=== PATIENT | female | born 1970 | race Caucasian/White ===

== ENCOUNTER 2016-09-25 22:14 | Emergency (ER) | payer BC, OTHER ==
--- NOTE | 2016-09-25 23:56 | DIAGNOSTIC IMAGING REPORT ---
PROCEDURE: CT ABD/PELVIS WITH CONTRAST INDICATION: Right abdominal and flank pain. Vomiting. TECHNIQUE: 125 ml of Isovue 300 were injected intravenously and axial images were obtained of the entire abdomen and pelvis with sagittal and coronal reformations. COMPARISON: None. FINDINGS: ABDOMEN: There is mild generalized mucosal thickening of the second portion of the duodenum with moderate ingested fluid in the stomach. Gallbladder is partially contracted with phrygian cap. Liver, spleen, pancreas, kidneys, and aorta are normal. Bowel pattern is normal, including appendix. PELVIS: T-shaped IUD within the endometrial canal. Uterus and adnexal structures are twice normal. No evidence of free fluid. IMPRESSION: 1. Findings suggest mild mucosal thickening of the second portion of the duodenum. Consider duodenitis or peptic disease. 2. Partially contracted gallbladder with phrygian cap. (normal variant) with moderate ingested material/fluid in the stomach. 3. T-shaped IUD in satisfactory position. 4. Otherwise negative CT abdomen and pelvis. 5. Findings discussed with LOTTIE Tillman. All CT scans at this facility use dose modulation, iterative reconstruction, and/or weight-based dosing when appropriate to reduce radiation dose to as low as reasonably achievable.
--- NOTE | 2016-09-26 | ED NURSING NOTES ---
Clinical Report - Nurses [facility] [address] [place] [address] 09/25/2016 22:14 Patient: LOC ANDERSEN TRIAGE Acuity: LEVEL 3. Chief Complaint: ABDOMINAL PAIN and VOMITING. Alert. No acute distress. --22:30 Shona Richey R.N. 22:24 09/25/16. BP: 129/55. HR: 99. RR: 24. O2 saturation: 100%. Temp: 97.9 F (oral). Pain level now: 02/06. --22:30 Shona Richey R.N. Weight: 81.6 kg stated. Height/Length: 63 inches Per Patient. BMI: 31.9. --22:29 Shona Richey R.N. Medications Lisinopril Oral. --22:34 Shona Richey R.N. Hydrochlorothiazide Oral. --22:35 Shona Richey R.N. Medication/allergy information source: the patient. --22:30 Shona Richey R.N. Allergies Penicillin. --22:34 Shona Richey R.N. History Arrived by private vehicle. Historian: patient. Accompanied by spouse. Primary physician (Laya). This started today. Describes the quality as "pain", sharp and cramping. Relates location as in the right flank area, right upper quadrant and right abdomen. She has had vomiting. Treatment COMBUSTION ANALYST: None. PAST MEDICAL HX: Last normal menstrual period was 4 weeks ago. Sexual history - sexually active. Uses an intrauterine device. SOCIAL HX: Never smoker. No alcohol use or drug use. FALL RISK ASSESSMENT: Fall risk assessment completed. No fall risk identified. NUTRITIONAL RISK ASSESSMENT: The nutritional risk assessment revealed no deficiencies. FUNCTIONAL ASSESSMENT: Functional assessment: no impairments noted. LEARNING NEEDS ASSESSMENT: The learning needs assessment revealed no barriers. SKIN INTEGRITY ASSESSMENT: Skin integrity risk assessment completed. No skin integrity risk identified. --22:30 Shona Richey R.N. PROBLEMS: Hypertension. --22:35 Shona Richey R.N. ADDITIONAL SURGERIES: Elbow surgery. Shoulder Surgery. --22:35 Shona Richey R.N. Assessment GENERAL / NEURO / PSYCH: Alert. Oriented X 4. Appears in no acute distress. Appears in pain and anxious. P[place] Coma Scale: 15- eyes open spontaneously (4); best verbal response- oriented x 4 (5); best motor response- obeys commands (6). RESPIRATORY: Respirations not labored. CVS: Capillary refill less than 2 seconds. GI / : Abdomen soft. Abdominal tenderness. SKIN: Mucous membranes are pink. Skin is warm and dry. --22:30 Shona Richey R.N. Interventions ID band on patient. To treatment room. --22:30 Shona Richey R.N. PHYSICAL ASSESSMENT Ambulatory to room. GENERAL / NEURO / PSYCH: Alert. Oriented X 4. Appears in no acute distress. HEENT: Mucous membranes are pink. RESPIRATORY: Respirations not labored. CVS: Capillary refill less than 2 seconds. GI / : Abdomen soft. SKIN: Skin is warm and dry. --22:28 Shona Richey R.N. NURSING PROGRESS NOTES 22:30 09/25/16. Patient gowned. Two patient identifiers checked. Call light placed in reach. Side rails up x 1. Bed placed in lowest position. Brakes of bed on. Patient ready for evaluation- chart flagged and ED physician and SPANISH INTERPRETER/TRANSLATOR notified. --22:30 Shona Richey R.N. 22:43 09/25/2016 Site #1 started via IV in the left antecubital space with an 20g angiocath, with aseptic technique and good blood return; one attempt. Blood drawn: rainbow set. Labeled in the presence of the patient and sent to the lab. Saline lock flushed with 10 mL saline. --22:44 Shona Richey R.N. 22:44 09/25/16. Checked patient name and birthdate: patient confirmed. Clean catch urine collected with return of yellow-colored clear urine; sample sent to lab for urinalysis and HCG. Specimen labeled in the presence of the patient. --22:44 Shona Richey R.N. 22:45 09/25/2016 Started bag #1 1000 mL IV Fluids IV NS (Saline); bolus of 1000 mL over 1 hour(s) then at 1000 mL/hr via site #1. Allergies verified and confirmed 5 rights. IV patency established. IV site checked: no pain, redness, or swelling. IV flushed thoroughly pre- and post-medication administration. Completed per protocol. --22:45 Júnior Osorio R.N. 22:45 09/25/2016 Toradol IVP 30 mg given over 2 minute(s) via site #1. Allergies verified and confirmed 5 rights. IV patency established. IV site checked: no pain, redness, or swelling. IV flushed thoroughly pre- and post-medication administration. IVP given by RN. --22:45 Júnior Osorio R.N. 22:45 09/25/2016 Zofran (Ondansetron HCl) IVP 4 mg given over 2 minute(s) via site #1. Allergies verified and confirmed 5 rights. IV patency established. IV site checked: no pain, redness, or swelling. IV flushed thoroughly pre- and post-medication administration. IVP given by RN. --:45 Júnior Osorio R.N. 00:11 09/26/2016 IV Fluids IV NS Discontinued: bag #1 completed upon discharge. Total amount infused: 1000 mL. IV patency established. IV site checked: no pain, redness, or swelling. IV flushed thoroughly. --00:11 Júnior Osorio R.N. 00:12 09/26/2016 Toradol IVP Response: no adverse reaction pain is improving. Symptoms have improved the patient feels better. --00:12 Júnior Osorio R.N. 00:12 09/26/2016 Zofran IVP Response: no adverse reaction symptoms have improved the patient feels better. --00:12 Júnior Osorio R.N. DISPOSITION / DISCHARGE 00:09/26/2016 Site #1 removed upon discharge. Catheter intact. Bandaid applied (Bleeding controlled.). --00: Júnior Osorio R.N. Departure time: 00:09. Condition at departure: stable. The goals identified in the patient's plan of care were met. No learning barriers present. Discharge instructions provided and reviewed with the patient. Reviewed medication(s) side effects, precautions, dosing and course information. Prescription(s) given to the patient (Loc verbalizes importance of not driving and/or operating heavy machinery while taking Tramadol. She verbalizes safe, proper use of all prescribed pain meds for optimal pain management at home.). Patient verbalized understanding. Written instructions provided in Faroese. ( Loc verbalizes understanding of all d/c instructions including need for f/u with PCP. She has no questions and voices no concerns at this time.). The patient was discharged by the nurse practitioner. She was discharged home and accompanied by spouse. She left the Emergency Department ambulatory and via private vehicle. Spouse driving. ADRIAN COMA SCORE: Pomeroy Coma Scale: 15- eyes open spontaneously (4); best verbal response- oriented x 4 (5); best motor response- obeys commands (6). --00:11 Júnior Osorio R.N. 00:09 09/26/16. BP: 103/56 (regular adult cuff) taken on the left arm, via an automated monitor, while lying. HR: 90 (normal rate). RR: 14 (regular, unlabored and normal). O2 saturation: 98% on room air. Temp: 98.4 F (oral). Pain level now: 09/06. --00:11 Júnior Osorio R.N. Locked/Released at 09/26/2016 0:12 by Júnior Osorio R.N.
--- NOTE | 2016-09-26 | ED ORDER SUMMARY ---
..... Patient: LOC ANDERSEN OrderSheet [facility] VisitID: [id number] [address] [place] [address] 46y, F Registration Date/Time: 09/25/2016 ORDER SHEET Weight: 81.6 kg (stated) Allergies: Penicillin GENERAL ORDERS: UA-Culture if indicated Urgent (22:31 09/25/2016 MWinterer R.N. per protocol) (Ack 22:38 CHagerty ER Labor Relations Analyst) (22:43 MWinterer R.N.) Urine Urgent (22:31 09/25/2016 MWinterer R.N. per protocol) (Ack 22:38 CHagerty ER Labor Relations Analyst) (22:43 MWinterer R.N.) CBC w Diff Urgent (22:37 09/25/2016 HBivens A.R.N.P.) (Ack 22:38 CHagerty ER Labor Relations Analyst) (22:43 MWinterer R.N.) CMP Urgent (22:37 09/25/2016 HBivens A.R.N.P.) (Ack 22:38 CHagerty ER Labor Relations Analyst) (22:43 MWinterer R.N.) Amylase Urgent (22:37 09/25/2016 HBivens A.R.N.P.) (Ack 22:38 CHagerty ER Labor Relations Analyst) (22:43 MWinterer R.N.) Lipase Urgent (22:37 09/25/2016 HBivens A.R.N.P.) (Ack 22:38 CHagerty ER Labor Relations Analyst) (22:43 MWinterer R.N.) CT Abd/Pel w Cont (No) (pending) Urgent (22:57 09/25/2016 HBivens A.R.N.P.) (Ack 22:58 CHagerty ER Labor Relations Analyst) (23:42 RFay) MEDICATION ORDERS: IV FLUIDS: IV NS : initial bolus 1000 mL (1000 mL/hr), then none - (NOW) (22:36 09/25/2016 HBivens A.R.N.P.) (Ack 22:40 JDeElena R.N.) (22:45 JDeElena R.N.) Toradol IV 30 mg (NOW) (22:37 09/25/2016 HBivens A.R.N.P.) (Ack 22:40 Renan R.N.) (22:45 JDeElena R.N.) Zofran IV 4 mg (NOW) (22:37 09/25/2016 HBivens A.R.N.P.) (Ack 22:40 Renan R.N.) (22:45 Renan R.N.) IV Saline Lock (22:37 09/25/2016 HBivens A.R.N.P.) (Ack 22:40 LindaElenjesika R.N.) (22:44 MWinterer R.N.) ORDER SHEET NOTES: [Electronically signed by Júnior Osorio R.N. (00:12 09/26/2016)] [Electronically signed by Laurie De La CruzRAwaisNAwaisPAwais (12:07 09/26/2016)] [Electronically locked/signed by Júnior Osorio R.N. (00:12 09/26/2016)]
--- NOTE | 2016-09-26 | ED ORDER SUMMARY ---
..... Patient: LOC ANDERSEN OrderSheet [facility] VisitID: [id number] [address] [place] [address] 46y, F Registration Date/Time: 09/25/2016 ORDER SHEET Weight: 81.6 kg (stated) Allergies: Penicillin GENERAL ORDERS: UA-Culture if indicated Urgent (22:31 09/25/2016 MWinterer R.N. per protocol) (Ack 22:38 CHagerty ER Office Messenger) (22:43 MWinterer R.N.) Urine Urgent (22:31 09/25/2016 MWinterer R.N. per protocol) (Ack 22:38 CHagerty ER Office Messenger) (22:43 MWinterer R.N.) CBC w Diff Urgent (22:37 09/25/2016 HBivens A.R.N.P.) (Ack 22:38 CHagerty ER Office Messenger) (22:43 MWinterer R.N.) CMP Urgent (22:37 09/25/2016 HBivens A.R.N.P.) (Ack 22:38 CHagerty ER Office Messenger) (22:43 MWinterer R.N.) Amylase Urgent (22:37 09/25/2016 HBivens A.R.N.P.) (Ack 22:38 CHagerty ER Office Messenger) (22:43 MWinterer R.N.) Lipase Urgent (22:37 09/25/2016 HBivens A.R.N.P.) (Ack 22:38 CHagerty ER Office Messenger) (22:43 MWinterer R.N.) CT Abd/Pel w Cont (No) (pending) Urgent (22:57 09/25/2016 HBivens A.R.N.P.) (Ack 22:58 CHagerty ER Office Messenger) (23:42 RFay) MEDICATION ORDERS: IV FLUIDS: IV NS : initial bolus 1000 mL (1000 mL/hr), then none - (NOW) (22:36 09/25/2016 HBivens A.R.N.P.) (Ack 22:40 JDeElena R.N.) (22:45 JDeElena R.N.) Toradol IV 30 mg (NOW) (22:37 09/25/2016 HBivens A.R.N.P.) (Ack 22:40 Renan R.N.) (22:45 JDeElena R.N.) Zofran IV 4 mg (NOW) (22:37 09/25/2016 HBivens A.R.N.P.) (Ack 22:40 Renan R.N.) (22:45 Renan R.N.) IV Saline Lock (22:37 09/25/2016 HBivens A.R.N.P.) (Ack 22:40 LindaElenjesika R.N.) (22:44 MWinterer R.N.) ORDER SHEET NOTES: [Electronically signed by Júnior Osorio R.N. (00:12 09/26/2016)] [Electronically signed by Laurie De La CruzRAwaisNAwaisPAwais (12:07 09/26/2016)] [Electronically locked/signed by Júnior Osorio R.N. (00:12 09/26/2016)]
--- NOTE | 2016-09-26 | ED CLINICAL REPORT ---
Clinical Report - Physicians/Mid Levels [facility] [address] [place] [address] 09/25/2016 22:14 Patient: LOC ANDERSEN Time Seen: 22:24; upon arrival, initial patient contact, initial documentation, patient care assumed. Arrived- By private vehicle. Historian- patient. HISTORY OF PRESENT ILLNESS Chief Complaint: ABDOMINAL PAIN. At its maximum, severity described as severe. When seen in the E.D., severity described as severe. Modifying factors. Not worsened by anything. Not relieved by anything. This started today and is still present. It is described as "pain", sharp and cramping and it is described as located in the right flank and the right upper quadrant and right abdomen. The patient has had nausea. No loss of appetite or diarrhea. She has had vomiting. The vomiting has occurred several times and has been bilious. No feculent emesis, blood-tinged emesis, coffee-grounds emesis, frankly bloody emesis or unusually dark emesis. Similar symptoms previously: None. Recent medical care: Not recently seen/assessed. REVIEW OF SYSTEMS No constipation, black stools, hematemesis, difficulty with urination or pain with urination. No urinary frequency, bloody stools, fever, chest pain or difficulty breathing. All systems otherwise negative, except as recorded above. PAST HISTORY See nurses notes. PROBLEMS: Hypertension. --22:35 Shona Richey R.N. ADDITIONAL SURGERIES: Elbow surgery. Shoulder Surgery. --22:35 Shona Richey R.N. SOCIAL HISTORY Never smoker. No alcohol use or drug use. No recent travel. Is a local resident. FAMILY HISTORY Negative. ADDITIONAL NOTES The nursing notes have been reviewed with agreement regarding the chief complaint, HPI, ROS, PMH and patient medications and allergies. PHYSICAL EXAM Vital Signs: 09/25/2016 22:24 BP: 129/55. HR: 99. RR: 24. O2 saturation: 100%. Temp: 97.9 F. Pain level now: 9/10. Have been reviewed as normal and appear to be correct. Appearance: Alert. Oriented X3. No acute distress. Eyes: Pupils equal, round and reactive to light. Eyes normal inspection. Neck: Normal inspection. Neck supple. CVS: Normal heart rate and rhythm. Heart sounds normal. Pulses normal. Respiratory: No respiratory distress. Breath sounds normal. Chest nontender. Abdomen: Soft and nontender. Bowel sounds normal. No organomegaly. No mass. Back: Normal inspection. Skin: Skin warm and dry. Normal skin color. No rash. Normal skin turgor. Extremities: Extremities exhibit normal ROM. No lower extremity edema. Neuro: Oriented X 3. No motor deficit. No sensory deficit. LABS, X-RAYS, AND EKG Abdominal CT: . IMPRESSION: 1. Findings suggest mild mucosal thickening of the second portion of the duodenum. Consider duodenitis or peptic disease. 2. Partially contracted gallbladder with phrygian cap. (normal variant) with moderate ingested material/fluid in the stomach. 3. T-shaped IUD in satisfactory position. 4. Otherwise negative CT abdomen and pelvis. 5. Findings discussed with LOTTIE Tillman. All CT scans at this facility use dose modulation, iterative reconstruction, and/or weight-based dosing when appropriate to reduce radiation dose to as low as reasonably achievable. Electronically Final signed by:Wander Obrien MD 09/25/2016 11:52:45 PM. The study was interpreted by the radiologist and discussed with the radiologist. Interpretation time: 2355. Laboratory Tests: UA-Culture if indicated: (SHANNON: 09/25/2016 22:30) ( MsgRcvd 09/25/2016 22:50) Final results Test Result Flag Units (Reference) URINE COLOR YELLOW URINE APPEARANCE CLEAR URINE GLUCOSE NEGATIVE (NEGATIVE) URINE BILIRUBIN NEGATIVE (NEGATIVE) URINE KETONE TRACE (NEGATIVE) URINE SPECIFIC GRAVITY 1.015 (1.010-1.030) URINE PH 6.0 (5.0-8.0) URINE PROTEIN NEGATIVE (NEGATIVE) URINE UROBILINOGEN 0.2 EU/dL (0.2-1.0) URINE NITRITE NEGATIVE (NEGATIVE) URINE BLOOD TRACE-INTACT (NEGATIVE) URINE LEUK ESTERASE NEGATIVE (NEGATIVE) URINE RBC 0-1 rbc/hpf (0-1) URINE WBC 0-1 wbc/hpf (0-1) URINE EPITHELIAL CELLS 0-1 EPI/hpf (0-5) URINE BACTERIA TRACE (<1+) (NONE SEEN) URINE COMMENT CULT NOT INDICATED URINE CULTURES ARE SET-UP BASED ON THE FOLLOWING CRITERIA:POSITIVE NITRITEPOSITIVE LEUKOCYTE ESTERASEGREATER THAN 10 WHITE BLOOD CELLSMODERATE (2+) OR GREATER BACTERIA Urine: (SHANNON: 09/25/2016 22:30) ( [facility] 09/25/2016 22:42) Final results Test Result Flag Units (Reference) URINE NEGATIVE CBC w Diff: (SHANNON: 09/25/2016 22:35) ( [facility] 09/25/2016 22:53) Final results Test Result Flag Units (Reference) WHITE BLOOD COUNT 16.2 H K/uL (4.5-11.5) RED BLOOD COUNT 4.33 M/uL (4.00-5.20) HEMOGLOBIN 13.3 gm/dL (12.0-16.0) HEMATOCRIT 39.7 % (36.0-46.0) MEAN CELL VOLUME 92 fL (80-100) MEAN CORPUSCULAR HGB 31 pg (26-34) MEAN CORPUSCULAR HGB CONC 34 g/dL (31-37) RED CELL DISTRIBUTION WIDTH 12.1 % (11.6-14.8) PLATELET COUNT 263 K/uL (150-400) LYMPH % 25.5 % (25-40) MONO % 7.2 % (3-14) GRANULOCYTE % 67.3 (53-90) CMP: (SHANNON: 09/25/2016 22:35) ( [facility] 09/25/2016 23:09) Final results Test Result Flag Units (Reference) GLUCOSE 150 H mg/dL (70-110) BUN 26 H mg/dL (7-18) CREATININE 0.9 mg/dL (0.6-1.3) Estimated GFR >60 mL/min Estimated GFR- >60 mL/min Note: Persistent reduction over 3 months in eGFR<60 mL/min/1.73 m2 defines CKD. Patients with eGFR values>=60 mL/min/1.73 m2 may also have CKD if evidence ofpersistent proteinuria. Additional information may be foundat www.kidney.org. SODIUM 136 mmol/L (136-145) POTASSIUM 3.5 mmol/L (3.5-5.1) CHLORIDE 99 mmol/L (98-107) CARBON DIOXIDE 25 mmol/L (21-32) CALCIUM 9.6 mg/dL (8.5-10.1) TOTAL PROTEIN 8.1 g/dL (6.4-8.2) ALBUMIN 3.7 g/dL (3.3-5.0) BILIRUBIN, TOTAL 0.5 mg/dL (0.0-1.0) ALKALINE PHOSPHATASE 69 U/L (46-116) AST (SGOT) 40 H U/L (15-37) ALT (SGPT) 37 U/L (12-78) LIPASE 120 U/L (73-393) AMYLASE 27 U/L (25-115) . PROGRESS AND PROCEDURES Course of Care: 2305. updated with plan of care to do ct, based on elevated wbc. 09/26/2016 00:09 BP: 103/56. HR: 90. RR: 14. O2 saturation: 98%. Temp: 98.4 F. Pain level now: 4/10. Vital Signs: have been reviewed as normal and appear to be correct. Patient and spouse counseled in person regarding the patient's stable condition, test results and diagnosis. 00:00. Differential Diagnosis: I considered gastritis, gastroenteritis, peptic ulcer disease, gastroesophageal reflux disease, acute appendicitis, diverticulitis, colon cancer, ulcerative colitis, small bowel obstruction, biliary colic, cholecystitis, cholelithiasis, hepatitis, pancreatitis, common bile duct obstruction, cholangitis, urinary tract infection, ureterolithiasis, and viral syndrome as a possible cause of abdominal pain in this patient. This is a partial list of diagnoses considered. Above considerations are based on history, physical exam, reassessment, laboratory data and other information. Differential diagnosis was discussed with patient and patient's spouse. Disposition: Discharged home in good and improved condition (00:00). Condition: good and stable. CLINICAL IMPRESSION Acute right upper quadrant abdominal pain of undetermined cause. INSTRUCTIONS Warnings: GENERAL WARNINGS: Return or contact your physician immediately if your condition worsens or changes unexpectedly, if not improving as expected, or if other problems arise. SPECIFICALLY, return if you develop pain in the abdomen or pelvis, fever, the inability to keep fluids down, blood in vomitus, blood in diarrhea, fainting or lightheadedness. Prescription Medications: Zofran 4 mg: Take 1 orally every six hours as needed for nausea/vomiting. Dispense ten (10). No refills. Substitution is permissible. Pepcid 20 mg tablets: Take 1 orally every 12 hours. Dispense thirty (30). No refills. Substitution is permissible. Ultram 50 mg tablets: take 1-2 orally every 6 hours as needed for pain. Dispense twenty (20). No refills. Substitution is permissible. Follow-up: Follow up with your doctor in about two days even if well. Call for an appointment. Summary of care provided to patient. Understanding of the discharge instructions verbalized by patient. (Electronically signed by Laurie De La Cruz A.R.N.P. 09/26/2016 12:07)
--- NOTE | 2016-09-26 | ED NURSING NOTES ---
Clinical Report - Nurses [facility] [address] [place] [address] 09/25/2016 22:14 Patient: LOC ANDERSEN TRIAGE Acuity: LEVEL 3. Chief Complaint: ABDOMINAL PAIN and VOMITING. Alert. No acute distress. --22:30 Shona Richey R.N. 22:24 09/25/16. BP: 129/55. HR: 99. RR: 24. O2 saturation: 100%. Temp: 97.9 F (oral). Pain level now: 02/06. --22:30 Shona Richey R.N. Weight: 81.6 kg stated. Height/Length: 63 inches Per Patient. BMI: 31.9. --22:29 Shona Richey R.N. Medications Lisinopril Oral. --22:34 Shona Richey R.N. Hydrochlorothiazide Oral. --22:35 Shona Richey R.N. Medication/allergy information source: the patient. --22:30 Shona Richey R.N. Allergies Penicillin. --22:34 Shona Richey R.N. History Arrived by private vehicle. Historian: patient. Accompanied by spouse. Primary physician (Laya). This started today. Describes the quality as "pain", sharp and cramping. Relates location as in the right flank area, right upper quadrant and right abdomen. She has had vomiting. 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 PAST MEDICAL HX: Last normal menstrual period was 4 weeks ago. Sexual history - sexually active. Uses an intrauterine device. SOCIAL HX: Never smoker. No alcohol use or drug use. FALL RISK ASSESSMENT: Fall risk assessment completed. No fall risk identified. NUTRITIONAL RISK ASSESSMENT: The nutritional risk assessment revealed no deficiencies. FUNCTIONAL ASSESSMENT: Functional assessment: no impairments noted. LEARNING NEEDS ASSESSMENT: The learning needs assessment revealed no barriers. SKIN INTEGRITY ASSESSMENT: Skin integrity risk assessment completed. No skin integrity risk identified. --22:30 Shona Richey R.N. PROBLEMS: Hypertension. --22:35 Shona Richey R.N. ADDITIONAL SURGERIES: Elbow surgery. Shoulder Surgery. --22:35 Shona Richey R.N. Assessment GENERAL / NEURO / PSYCH: Alert. Oriented X 4. Appears in no acute distress. Appears in pain and anxious. [place] Coma Scale: 15- eyes open spontaneously (4); best verbal response- oriented x 4 (5); best motor response- obeys commands (6). RESPIRATORY: Respirations not labored. CVS: Capillary refill less than 2 seconds. GI / : Abdomen soft. Abdominal tenderness. SKIN: Mucous membranes are pink. Skin is warm and dry. --22:30 Shona Richey R.N. Interventions ID band on patient. To treatment room. --22:30 Shona Richey R.N. PHYSICAL ASSESSMENT Ambulatory to room. GENERAL / NEURO / PSYCH: Alert. Oriented X 4. Appears in no acute distress. HEENT: Mucous membranes are pink. RESPIRATORY: Respirations not labored. CVS: Capillary refill less than 2 seconds. GI / : Abdomen soft. SKIN: Skin is warm and dry. --22:28 Shona Richey R.N. NURSING PROGRESS NOTES 22:30 09/25/16. Patient gowned. Two patient identifiers checked. Call light placed in reach. Side rails up x 1. Bed placed in lowest position. Brakes of bed on. Patient ready for evaluation- chart flagged and ED physician and JAILER CHIEF notified. --22:30 Shona Richey R.N. 22:43 09/25/2016 Site #1 started via IV in the left antecubital space with an 20g angiocath, with aseptic technique and good blood return; one attempt. Blood drawn: rainbow set. Labeled in the presence of the patient and sent to the lab. Saline lock flushed with 10 mL saline. --22:44 Shona Richey R.N. 22:44 09/25/16. Checked patient name and birthdate: patient confirmed. Clean catch urine collected with return of yellow-colored clear urine; sample sent to lab for urinalysis and HCG. Specimen labeled in the presence of the patient. --22:44 Shona Richey R.N. 22:45 09/25/2016 Started bag #1 1000 mL IV Fluids IV NS (Saline); bolus of 1000 mL over 1 hour(s) then at 1000 mL/hr via site #1. Allergies verified and confirmed 5 rights. IV patency established. IV site checked: no pain, redness, or swelling. IV flushed thoroughly pre- and post-medication administration. Completed per protocol. --22:45 Júnior Osorio R.N. 22:45 09/25/2016 Toradol IVP 30 mg given over 2 minute(s) via site #1. Allergies verified and confirmed 5 rights. IV patency established. IV site checked: no pain, redness, or swelling. IV flushed thoroughly pre- and post-medication administration. IVP given by RN. --22:45 Júnior Osorio R.N. 22:45 09/25/2016 Zofran (Ondansetron HCl) IVP 4 mg given over 2 minute(s) via site #1. Allergies verified and confirmed 5 rights. IV patency established. IV site checked: no pain, redness, or swelling. IV flushed thoroughly pre- and post-medication administration. IVP given by RN. --:45 Júnior Osorio R.N. 00:11 09/26/2016 IV Fluids IV NS Discontinued: bag #1 completed upon discharge. Total amount infused: 1000 mL. IV patency established. IV site checked: no pain, redness, or swelling. IV flushed thoroughly. --00:11 Júnior Osorio R.N. 00:12 09/26/2016 Toradol IVP Response: no adverse reaction pain is improving. Symptoms have improved the patient feels better. --00:12 Júnior Osorio R.N. 00:12 09/26/2016 Zofran IVP Response: no adverse reaction symptoms have improved the patient feels better. --00:12 Júnior sOorio R.N. DISPOSITION / DISCHARGE 00:09/26/2016 Site #1 removed upon discharge. Catheter intact. Bandaid applied (Bleeding controlled.). --00: Júnior Osorio R.N. Departure time: 00:09. Condition at departure: stable. The goals identified in the patient's plan of care were met. No learning barriers present. Discharge instructions provided and reviewed with the patient. Reviewed medication(s) side effects, precautions, dosing and course information. Prescription(s) given to the patient (Loc verbalizes importance of not driving and/or operating heavy machinery while taking Tramadol. She verbalizes safe, proper use of all prescribed pain meds for optimal pain management at home.). Patient verbalized understanding. Written instructions provided in Arabic. ( Loc verbalizes understanding of all d/c instructions including need for f/u with PCP. She has no questions and voices no concerns at this time.). The patient was discharged by the nurse practitioner. She was discharged home and accompanied by spouse. She left the Emergency Department ambulatory and via private vehicle. Spouse driving. ADRIAN COMA SCORE: [place] Coma Scale: 15- eyes open spontaneously (4); best verbal response- oriented x 4 (5); best motor response- obeys commands (6). --00:11 Júnior Osorio R.N. 00:09 09/26/16. BP: 103/56 (regular adult cuff) taken on the left arm, via an automated monitor, while lying. HR: 90 (normal rate). RR: 14 (regular, unlabored and normal). O2 saturation: 98% on room air. Temp: 98.4 F (oral). Pain level now: 09/06. --00:11 Júnior Osorio R.N. Locked/Released at 09/26/2016 0:12 by Júnior Osorio R.N.
--- NOTE | 2016-09-26 12:07 | ED DISCHARGE INSTRUCTIONS ---
Patient: LOC ANDERSEN General Instructions [facility] VisitID: [id number] [address] [place] [address] 46y, F Registration Date/Time: 09/25/2016 Acute right upper quadrant abdominal pain of undetermined cause. INSTRUCTIONS Warnings: GENERAL WARNINGS: Return or contact your physician immediately if your condition worsens or changes unexpectedly, if not improving as expected, or if other problems arise. SPECIFICALLY, return if you develop pain in the abdomen or pelvis, fever, the inability to keep fluids down, blood in vomitus, blood in diarrhea, fainting or lightheadedness. Prescription Medications: Zofran 4 mg: Take 1 orally every six hours as needed for nausea/vomiting. Dispense ten (10). No refills. Substitution is permissible. Pepcid 20 mg tablets: Take 1 orally every 12 hours. Dispense thirty (30). No refills. Substitution is permissible. Ultram 50 mg tablets: take 1-2 orally every 6 hours as needed for pain. Dispense twenty (20). No refills. Substitution is permissible. Follow-up: Follow up with your doctor in about two days even if well. Call for an appointment. Summary of care provided to patient. Understanding of the discharge instructions verbalized by patient. ADDITIONAL INFORMATION Abdominal Pain, Unknown Cause (Female) The exact cause of your abdominal (stomach) pain is not certain. This does not mean that this is something to worry about, or the right tests were not done. Everyone likes to know the exact cause of the problem, but sometimes with abdominal pain, there is no clear-cut cause, and this could be a good thing. The good news is that your symptoms can be treated, and you will feel better. Your condition does not seem serious now; however, sometimes the signs of a serious problem may take more time to appear. For this reason,it is important for you to watch for any new symptoms, problems,or worsening of your condition. Over the next few days, the abdominal pain may come and go, or be continuous. Other common symptoms can include nausea and vomiting. Sometimes it can be difficult to tell if you feel nauseous, you may just feel bad and not associate that feeling with nausea. Constipation, diarrhea, and a fever may go along with the pain. The pain may continue even if treated correctly over the following days. Depending on how things go, sometimes the cause can become clear and may require further or different treatment. Additional evaluations, medications, or tests may be needed. Home care Your health care provider may prescribe medications for pain, symptoms, or an infection. Follow the health care provider's instructions for taking these medications. General care Rest until your next exam. No strenuous activities. Try to find positions that ease discomfort. A small pillow placed on the abdomen may help relieve pain. Something warm on your abdomen (such as a heating pad) may help, but be careful not to burn yourself. Diet Do not force yourself to eat, especially if having cramps, vomiting, or diarrhea. Water is important so you do not get dehydrated. Soup may also be good. Sports drinks may also help, especially if they are not too acidic. Make sure you don't drink sugary drinks as this can make things worse. Take liquids in small amounts. Do not guzzle them. Caffeine sometimes makes the pain and cramping worse. Avoid dairy products if you have vomiting or diarrhea. Don't eat large amounts at a time. Wait a few minutes between bites. Eat a diet low in fiber (called a low-residue diet). Foods allowed include refined breads, white rice, fruit and vegetable juices without pulp, tender meats. These foods will pass more easily through the intestine. Avoid whole-grain foods, whole fruits and vegetables, meats, seeds and nuts, fried or fatty foods, dairy, alcohol and spicy foods until your symptoms go away. Follow-up care Follow up with your health care provider as instructed, or if your pain does not begin to improve in the next 24 hours. When to seek medical care Seek prompt medical care if any of the following occur: Pain gets worse or moves to the right lower abdomen New or worsening vomiting or diarrhea Swelling of the abdomen Unable to pass stool for more than three days Fever of 100.4F (38C) or higher, or as directed by your healthcare provider. Blood in vomit or bowel movements (dark red or black color) Jaundice (yellow color of eyes and skin) Weakness, dizziness Chest, arm, back, neck or jaw pain Unexpected vaginal bleeding or missed period Call 911 Call emergency services if any of the following occur: Trouble breathing Confusion Fainting or loss of consciousness Rapid heart rate Seizure Ondansetron Oral disintegrating tablet What is this medicine? ONDANSETRON (on TAHIRA se tabatha) is used to treat nausea and vomiting caused by chemotherapy. It is also used to prevent or treat nausea and vomiting after surgery. How should I use this medicine? These tablets are made to dissolve in the mouth. Do not try to push the tablet through the foil backing. With dry hands, peel away the foil backing and gently remove the tablet. Place the tablet in the mouth and allow it to dissolve, then swallow. While you may take these tablets with water, it is not necessary to do so. Talk to your monitor worker regarding the use of this medicine in children. Special care may be needed. What side effects may I notice from receiving this medicine? Side effects that you should report to your doctor or health coronary care unit nurse as soon as possible: allergic reactions like skin rash, itching or hives, swelling of the face, lips, or tongue breathing problems dizziness fast or irregular heartbeat feeling faint or lightheaded, falls fever and chills swelling of the hands and feet tightness in the chest Side effects that usually do not require medical attention (report to your doctor or health coronary care unit nurse if they continue or are bothersome): constipation or diarrhea headache What may interact with this medicine? Do not take this medicine with any of the following medications: -apomorphine -cisapride -dofetilide -dronedarone -pimozide -thioridazine -ziprasidone This medicine may also interact with the following medications: -carbamazepine -phenytoin -rifampicin -tramadol -other medicines that prolong the QT interval (cause an abnormal heart rhythm) What if I miss a dose? If you miss a dose, take it as soon as you can. If it is almost time for your next dose, take only that dose. Do not take double or extra doses. Where should I keep my medicine? Keep out of the reach of children. Store between 2 and 30 degrees C (36 and 86 degrees F). Throw away any unused medicine after the expiration date. What should I tell my health care provider before I take this medicine? They need to know if you have any of these conditions: heart disease history of irregular heartbeat liver disease low levels of magnesium or potassium in the blood an unusual or allergic reaction to ondansetron, granisetron, other medicines, foods, dyes, or preservatives or trying to get breast-feeding What should I watch for while using this medicine? Check with your doctor or health coronary care unit nurse as soon as you can if you have any sign of an allergic reaction. Famotidine Oral tablet What is this medicine? FAMOTIDINE (fa IGNACIA avilaen) is a type of antihistamine that blocks the release of stomach acid. It is used to treat stomach or intestinal ulcers. It can also relieve heartburn from acid reflux. How should I use this medicine? Take this medicine by mouth with a glass of water. Follow the directions on the prescription label. If you only take this medicine once a day, take it at bedtime. Take your doses at regular intervals. Do not take your medicine more often than directed. Talk to your monitor worker regarding the use of this medicine in children. Special care may be needed. What side effects may I notice from receiving this medicine? Side effects that you should report to your doctor or health coronary care unit nurse as soon as possible: agitation, nervousness confusion hallucinations skin rash, itching Side effects that usually do not require medical attention (report to your doctor or health coronary care unit nurse if they continue or are bothersome): constipation diarrhea dizziness headache What may interact with this medicine? delavirdine itraconazole ketoconazole What if I miss a dose? If you miss a dose, take it as soon as you can. If it is almost time for your next dose, take only that dose. Do not take double or extra doses. Where should I keep my medicine? Keep out of the reach of children. Store at room temperature between 15 and 30 degrees C (59 and 86 degrees F). Do not freeze. Throw away any unused medicine after the expiration date. What should I tell my health care provider before I take this medicine? They need to know if you have any of these conditions: kidney or liver disease trouble swallowing an unusual or allergic reaction to famotidine, other medicines, foods, dyes, or preservatives or trying to get breast-feeding What should I watch for while using this medicine? Tell your doctor or health coronary care unit nurse if your condition does not start to get better or if it gets worse. Finish the full course of tablets prescribed, even if you feel better. Do not take with aspirin, ibuprofen or other antiinflammatory medicines. These can make your condition worse. Do not smoke cigarettes or drink alcohol. These cause irritation in your stomach and can increase the time it will take for ulcers to heal. If you get black, tarry stools or vomit up what looks like coffee grounds, call your doctor or health coronary care unit nurse at once. You may have a bleeding ulcer. Tramadol Hydrochloride Oral tablet What is this medicine? TRAMADOL (TRA ma dole) is a pain reliever. It is used to treat moderate to severe pain in adults. How should I use this medicine? Take this medicine by mouth with a full glass of water. Follow the directions on the prescription label. If the medicine upsets your stomach, take it with food or milk. Do not take more medicine than you are told to take. Talk to your monitor worker regarding the use of this medicine in children. Special care may be needed. What side effects may I notice from receiving this medicine? Side effects that you should report to your doctor or health coronary care unit nurse as soon as possible: allergic reactions like skin rash, itching or hives, swelling of the face, lips, or tongue breathing difficulties, wheezing confusion itching light headedness or fainting spells redness, blistering, peeling or loosening of the skin, including inside the mouth seizures Side effects that usually do not require medical attention (report to your doctor or health coronary care unit nurse if they continue or are bothersome): constipation dizziness drowsiness headache nausea, vomiting What may interact with this medicine? Do not take this medicine with any of the following medications: MAOIs like Carbex, Eldepryl, Marplan, Nardil, and Parnate This medicine may also interact with the following medications: alcohol or medicines that contain alcohol antihistamines benzodiazepines bupropion carbamazepine or oxcarbazepine clozapine cyclobenzaprine digoxin furazolidone linezolid medicines for depression, anxiety, or psychotic disturbances medicines for migraine headache like almotriptan, eletriptan, frovatriptan, naratriptan, rizatriptan, sumatriptan, zolmitriptan medicines for pain like pentazocine, buprenorphine, butorphanol, meperidine, nalbuphine, and propoxyphene medicines for sleep muscle relaxants naltrexone phenobarbital phenothiazines like perphenazine, thioridazine, chlorpromazine, mesoridazine, fluphenazine, prochlorperazine, promazine, and trifluoperazine procarbazine warfarin What if I miss a dose? If you miss a dose, take it as soon as you can. If it is almost time for your next dose, take only that dose. Do not take double or extra doses. Where should I keep my medicine? Keep out of the reach of children. Store at room temperature between 15 and 30 degrees C (59 and 86 degrees F). Keep container tightly closed. Throw away any unused medicine after the expiration date. What should I tell my health care provider before I take this medicine? They need to know if you have any of these conditions: brain tumor depression drug abuse or addiction head injury if you frequently drink alcohol containing drinks kidney disease or trouble passing urine liver disease lung disease, asthma, or breathing problems seizures or epilepsy suicidal thoughts, plans, or attempt; a previous suicide attempt by you or a family member an unusual or allergic reaction to tramadol, codeine, other medicines, foods, dyes, or preservatives or trying to get breast-feeding What should I watch for while using this medicine? Tell your doctor or health coronary care unit nurse if your pain does not go away, if it gets worse, or if you have new or a different type of pain. You may develop tolerance to the medicine. Tolerance means that you will need a higher dose of the medicine for pain relief. Tolerance is normal and is expected if you take this medicine for a long time. Do not suddenly stop taking your medicine because you may develop a severe reaction. Your body becomes used to the medicine. This does NOT mean you are addicted. Addiction is a behavior related to getting and using a drug for a non-medical reason. If you have pain, you have a medical reason to take pain medicine. Your doctor will tell you how much medicine to take. If your doctor wants you to stop the medicine, the dose will be slowly lowered over time to avoid any side effects. You may get drowsy or dizzy. Do not drive, use machinery, or do anything that needs mental alertness until you know how this medicine affects you. Do not stand or sit up quickly, especially if you are an older patient. This reduces the risk of dizzy or fainting spells. Alcohol can increase or decrease the effects of this medicine. Avoid alcoholic drinks. You may have constipation. Try to have a bowel movement at least every 2 to 3 days. If you do not have a bowel movement for 3 days, call your doctor or health coronary care unit nurse. Your mouth may get dry. Chewing sugarless gum or sucking hard candy, and drinking plenty of water may help. Contact your doctor if the problem does not go away or is severe. You have been given the following additional information: Abdominal Pain, Unknown Cause, (Female) Ondansetron Oral disintegrating tablet Famotidine Oral tablet Tramadol Hydrochloride Oral tablet (Electronically signed by Laurie De La Cruz A.R.N.P. 09/26/2016 12:07)
--- NOTE | 2016-09-26 12:07 | ED MED RECONCILIATION SUMMARY ---
Patient: LOC ANDERSEN Medication Reconciliation Report [facility] VisitID: [id number] [address] [place] [address] 46y, F Registration Date/Time: 09/25/2016 Weight: 81.6 kg Height/Length: 63 in. BMI: 31.9 ALLERGIES: Penicillin The patient's Home Medications are listed below: THE FOLLOWING MEDICATIONS NEED TO BE RECONCILED: Hydrochlorothiazide Oral Lisinopril Oral The source(s) of the original Home Medication information: patient The following Medications were given to the patient in the Emergency Department: IV NS IV Fluids bolus 1000 mL over 1 hour(s), then 1000 mL/hr, administered: 09/25/2016 10:45:00 PM Toradol [IVP] IVP 30 mg, administered: 09/25/2016 10:45:00 PM Zofran [IVP] IVP 4 mg, administered: 09/25/2016 10:45:00 PM The following Medications were prescribed to the patient: Zofran 4 mg: Take 1 orally every six hours as needed for nausea/vomiting. Dispense ten (10). No refills. Substitution is permissible. -- Laurie De La Cruz, A.R.N.P. Pepcid 20 mg tablets: Take 1 orally every 12 hours. Dispense thirty (30). No refills. Substitution is permissible. -- Laurie De La Cruz, A.R.N.P. Ultram 50 mg tablets: take 1-2 orally every 6 hours as needed for pain. Dispense twenty (20). No refills. Substitution is permissible. -- Laurie De La Cruz A.R.N.P.
--- NOTE | 2016-09-26 12:07 | ED MAR SUMMARY ---
..... Medication Administration Record [facility] [address] [place] [address] Patient: LOC ANDERSEN Visit ID: [id number] 46y, F Weight: 81.6 kg Height/Length: 63 in BMI: 31.9 ALLERGIES: Penicillin Start 22:45 09/25/2016 Júnior Osorio R.N., Stop 00:11 09/26/2016 Júnior Osorio R.N. Medication Administered: IV NS (SALINE), Dose: IV Fluids, Rate: 1000 mL/hr, Bolus: 1000 mL over 1 hour(s), Dispensed: 1000 mL bag, Site: #1 left AC. Medication Ordered: IV NS : initial bolus 1000 mL (1000 mL/hr), then none - (NOW). Given 22:45 09/25/2016 Júnior Osorio R.N. Medication Administered: TORADOL [IVP], Dose: 30 mg IVP over 2 minute(s), Site: #1 left AC. Medication Ordered: Toradol IV 30 mg (NOW). Given 22:45 09/25/2016 Júnior Osorio R.NAwais Medication Administered: ZOFRAN [IVP] (ONDANSETRON HCL), Dose: 4 mg IVP over 2 minute(s), Site: #1 left AC. Medication Ordered: Zofran IV 4 mg (NOW).
--- NOTE | 2016-09-26 12:07 | ED MED RECONCILIATION SUMMARY ---
Patient: LOC ANDERSEN Medication Reconciliation Report [facility] VisitID: [id number] [address] [place] [address] 46y, F Registration Date/Time: 09/25/2016 Weight: 81.6 kg Height/Length: 63 in. BMI: 31.9 ALLERGIES: Penicillin The patient's Home Medications are listed below: THE FOLLOWING MEDICATIONS NEED TO BE RECONCILED: Hydrochlorothiazide Oral Lisinopril Oral The source(s) of the original Home Medication information: patient The following Medications were given to the patient in the Emergency Department: IV NS IV Fluids bolus 1000 mL over 1 hour(s), then 1000 mL/hr, administered: 09/25/2016 10:45:00 PM Toradol [IVP] IVP 30 mg, administered: 09/25/2016 10:45:00 PM Zofran [IVP] IVP 4 mg, administered: 09/25/2016 10:45:00 PM The following Medications were prescribed to the patient: Zofran 4 mg: Take 1 orally every six hours as needed for nausea/vomiting. Dispense ten (10). No refills. Substitution is permissible. -- Laurie De La Cruz, A.R.N.P. Pepcid 20 mg tablets: Take 1 orally every 12 hours. Dispense thirty (30). No refills. Substitution is permissible. -- Laurie De La Cruz, A.R.N.P. Ultram 50 mg tablets: take 1-2 orally every 6 hours as needed for pain. Dispense twenty (20). No refills. Substitution is permissible. -- Laurie De La Cruz A.R.N.P.
--- NOTE | 2016-09-26 12:07 | ED MAR SUMMARY ---
..... Medication Administration Record [facility] [address] [place] [address] Patient: LOC ANDERSEN Visit ID: [id number] 46y, F Weight: 81.6 kg Height/Length: 63 in BMI: 31.9 ALLERGIES: Penicillin Start 22:45 09/25/2016 Júnior Osorio R.N., Stop 00:11 09/26/2016 Júnior Osorio R.N. Medication Administered: IV NS (SALINE), Dose: IV Fluids, Rate: 1000 mL/hr, Bolus: 1000 mL over 1 hour(s), Dispensed: 1000 mL bag, Site: #1 left AC. Medication Ordered: IV NS : initial bolus 1000 mL (1000 mL/hr), then none - (NOW). Given 22:45 09/25/2016 Júnior Osorio R.N. Medication Administered: TORADOL [IVP], Dose: 30 mg IVP over 2 minute(s), Site: #1 left AC. Medication Ordered: Toradol IV 30 mg (NOW). Given 22:45 09/25/2016 Júnior Osorio R.NAwais Medication Administered: ZOFRAN [IVP] (ONDANSETRON HCL), Dose: 4 mg IVP over 2 minute(s), Site: #1 left AC. Medication Ordered: Zofran IV 4 mg (NOW).
== END 2016-09-26 00:09 | disposition home or self-care (01) ==
LOC: ED SRH 22:14
DX: R10.11 Right upper quadrant pain (principal); I10 Essential (primary) hypertension; Z79.899 Other long term (current) drug therapy; Z88.0 Allergy status to penicillin; Z97.5 Presence of (intrauterine) contraceptive device
CPT/HCPCS: 90004; 90100; 92235; 92530; 93070; 95059